=== PATIENT | male | born 1945 | race Caucasian/White ===

== ENCOUNTER 2019-10-22 05:39 | Emergency (ER) | payer MEDICARE, OTHER ==
[2019-10-22] MEDS ORDERED: Tranexamic Acid 1,000 MG/10 ML VIAL ONE (05:58)
== END 2019-10-22 06:19 | disposition home or self-care (01) ==
LOC: BURERS 05:39
DX: R04.0 Epistaxis (principal); I25.10 Atherosclerotic heart disease of native coronary artery without angina pectoris
CPT/HCPCS: 30903

== ENCOUNTER 2020-06-25 13:50 | Outpatient (CLI) | payer MEDICARE ==
--- NOTE | 2020-06-25 17:29 | RAD ---
CHEST 2 VIEWS: Date: 06/25/2020 Comparison made with a 05/11/08 study. Mild to moderate cardiomegaly is present, which is roughly comparable to before. There is no vascular congestion or edema. No pleural effusions are seen. No focal pulmonary infiltrates of concern were d etected. Calcification is present in the aortic arch. Degenerative changes are seen in the spine. IMPRESSION: No acute thoracic findings. Cardiomegaly and arteriosclerosis. POS: HOME
== END 2020-06-25 13:51 | disposition home or self-care (01) ==
LOC: BURRAD 13:50
PROVIDERS: ATTEND Nurse Practitioner Family
DX: R05 Cough (principal); R09.81 Nasal congestion; I51.7 Cardiomegaly; I70.0 Atherosclerosis of aorta
CPT/HCPCS: 71046